=== PATIENT | male | born 1990 | race Caucasian/White ===

== ENCOUNTER 2019-07-23 17:35 | Emergency (ER) | payer SELFPAY ==
[~2019-07-23] VITALS: Ht 188 cm; Wt 86.4 kg
[2019-07-23 17:58] VITALS: BP 132/74; Ht 188 cm; Wt 86.4 kg
[2019-07-23] MEDS ORDERED: EC-NAPROSYN500 MG PO (19:22)
== END 2019-07-23 19:50 | disposition home or self-care (01) ==
LOC: D.ER 17:35
DX: S93.402A Sprain of unspecified ligament of left ankle, initial encounter (principal); X58.XXXA Exposure to other specified factors, initial encounter